=== PATIENT | male | born 1985 | race Caucasian/White ===

== ENCOUNTER 2018-05-03 19:48 | Emergency (ER) | payer BC ==
--- NOTE | 2018-05-03 20:00 | ER Report ---
History and Physical Time Seen By MD: 20:00 Hx. of Stated Complaint: ABD PAIN STARTED YESTERDAY, NAUSEA, DENIES V/D AND FEVERS (TERRI LONGORIAP-) Time Seen By MD: 20:08 (CHARLETTE LOYA DO) HPI/ROS CHIEF COMPLAINT: Diffuse abdominal pain, nausea HISTORY OF PRESENT ILLNESS: Patient is a 32-year-old male here with complaints of diffuse abdominal pain worse in the mid epigastric and periumbilical region which is aching in nature approximately 7 out of 10 at time of evaluation associated with nausea. Patient denies vomiting, fevers or chills, chest pain or shortness breath, headache or blurred vision, dysuria or hematuria. Patient is passing bowel movements without issue. Denies prior abdominal surgeries. Patient is otherwise healthy and takes no medications at baseline however he did take Her Profen shortly prior to arrival. Patient denies similar pains in the past. Pain started approximately midday yesterday and worsened overnight. REVIEW OF SYSTEMS: Constitutional: No fever, no chills. Eyes: No discharge. ENT: No sore throat. Cardiovascular: No chest pain, no palpitations. Respiratory: No cough, no shortness of breath. Gastrointestinal: + Diffuse abdominal pain, no vomiting, + nausea Genitourinary: No hematuria. Musculoskeletal: No back pain. Skin: No rashes. Neurological: No headache. (CHARLETTE LOYA DO) Allergies: Coded Allergies: No Known Drug Allergies (Unverified , 05/03/18) Home Meds No Active Prescriptions or Reported Meds Constitutional Vital Sign - Last 24 Hours 05/03/18 19:53 Temp 98.2 Pulse 67 Resp 16 B/P (MAP) 152/104 Pulse Ox 95 O2 Delivery Room Air (CHARLETTE LOYA ) Physical Exam General Appearance: The patient is alert, has no immediate need for airway p rotection and no signs of toxicity. Moderate distress secondary to pain Eyes: Pupils equal and round no pallor or injection. ENT, Mouth: Mucous membranes are moist. Respiratory: There are no retractions, lungs are clear to auscultation. Cardiovascular: Regular rate and rhythm. Gastrointestinal: Abdomen is soft and diffusely tender, no masses, bowel sounds normal. Neurological: No focal neurological deficits Skin: Warm and dry, no rashes. Musculoskeletal: Neck is supple non tender. Extremities are nontender, nonswollen and have full range of motion. DIFFERENTIAL DIAGNOSIS: After history and physical exam differential diagnosis was considered for abdominal pain including but not limited to appendicitis, cholecystitis, gastritis and urinary tract infection. Diverticulitis (CHARLETTE LOYA S DO) Medical Decision Making Data Points Result Diagram: 05/03/18200005/03/182000 Laboratory Hematology Test 05/03/18 19:52 05/03/18 20:01 Urine Color Straw Urine Clarity Clear Urine pH 7.0 pH (4.8-9.5) Urine Specific [place] 1.010 Urine Protein Negative mg/dL (NEGATIVE) Urine Glucose (UA) Negative mg/dL (NEGATIVE) Urine Ketones Negative mg/dL (NEGATIVE) Urine Blood Negative (NEGATIVE) Urine Nitrite Negative (NEGATIVE) Urine Bilirubin Negative (NEGATIVE) Urine Urobilinogen Negative mg/dL (0.2-1.9) Urine Leukocyte Esterase Negative (NEGATIVE) Urine RBC <1 /HPF (0-2/HPF) Urine WBC <1 /HPF (0-5/HPF) Urine Squamous Epithelial Cells None /LPF (</=FEW) Urine Bacteria Negative /HPF (NONE-FEW) Urine Mucus None /HPF (NONE-FEW) Red Blood Count 5.25 M/uL (4.00-5.60) Mean Corpuscular Volume 91.0 fL (80.0-96.0) Mean Corpuscular Hemoglobin 31.8 pg (26.0-33.0) Mean Corpuscular Hemoglobin Concent 35.0 g/dL (32.0-36.0) Red Cell Distribution Width 12.7 % (11.5-14.5) Mean Platelet Volume 7.5 fL (7.2-11.1) Neutrophils (%) (Auto) 62.6 % (39.4-72.5) Lymphocytes (%) (Auto) 25.3 % (17.6-49.6) Monocytes (%) (Auto) 10.9 % (4.1-12.4) Eosinophils (%) (Auto) 0.8 % (0.4-6.7) Basophils (%) (Auto) 0.4 % (0.3-1.4) Nucleated RBC Relative Count (auto) 0.0 /100WBC Neutrophils # (Auto) 5.6 K/uL (2.0-7.4) Lymphocytes # (Auto) 2.3 K/uL (1.3-3.6) Monocytes # (Auto) 1.0 K/uL (0.3-1.0) Eosinophils # (Auto) 0.1 K/uL (0.0-0.5) Basophils # (Auto) 0.0 K/uL (0.0-0.1) Nucleated RBC Absolute Count (auto) 0.00 K/uL Sodium Level 139 mmol/L (137-145) Potassium Level 3.9 mmol/L (3.5-5.0) Chloride Level 99 mmol/L (98-107) Carbon Dioxide Level 29 mmol/L (22-30) Blood Urea Nitrogen 16 mg/dl (9-21) Creatinine 0.90 mg/dl (0.66-1.25) Glomerular Filtration Rate Calc > 60.0 Random Glucose 107 mg/dl (75-110) Calcium Level 9.3 mg/dl (8.4-10.2) Total Bilirubin 0.7 mg/dl (0.2-1.3) Aspartate Amino Transf (AST/SGOT) 26 U/L (0-35) Alanine Aminotransferase (ALT/SGPT) 38 U/L (0-56) Alkaline Phosphatase 57 U/L (0-126) C-Reactive Protein < 0.5 mg/dl (<1.0) Total Protein 8.0 g/dl (6.3-8.2) Albumin 4.4 g/dl (3.5-5.0) Lipase 107 U/L (23-300) Chemistry Test 05/03/18 19:52 05/03/18 20:01 Urine Color Straw Urine Clarity Clear Urine pH 7.0 pH (4.8-9.5) Urine Specific [place] 1.010 Urine Protein Negative mg/dL (NEGATIVE) Urine Glucose (UA) Negative mg/dL (NEGATIVE) Urine Ketones Negative mg/dL (NEGATIVE) Urine Blood Negative (NEGATIVE) Urine Nitrite Negative (NEGATIVE) Urine Bilirubin Negative (NEGATIVE) Urine Urobilinogen Negative mg/dL (0.2-1.9) Urine Leukocyte Esterase Negative (NEGATIVE) Urine RBC <1 /HPF (0-2/HPF) Urine WBC <1 /HPF (0-5/HPF) Urine Squamous Epithelial Cells None /LPF (</=FEW) Urine Bacteria Negative /HPF (NONE-FEW) Urine Mucus None /HPF (NONE-FEW) White Blood Count 9.0 k/uL (4.5-11.0) Red Blood Count 5.25 M/uL (4.00-5.60) Hemoglobin 16.7 g/dL (14.0-18.0) Hematocrit 47.8 % (42.0-52.0) Mean Corpuscular Volume 91.0 fL (80.0-96.0) Mean Corpuscular Hemoglobin 31.8 pg (26.0-33.0) Mean Corpuscular Hemoglobin Concent 35.0 g/dL (32.0-36.0) Red Cell Distribution Width 12.7 % (11.5-14.5) Platelet Count 232 K/uL (150-450) Mean Platelet Volume 7.5 fL (7.2-11.1) Neutrophils (%) (Auto) 62.6 % (39.4-72.5) Lymphocytes (%) (Auto) 25.3 % (17.6-49.6) Monocytes (%) (Auto) 10.9 % (4.1-12.4) Eosinophils (%) (Auto) 0.8 % (0.4-6.7) Basophils (%) (Auto) 0.4 % (0.3-1.4) Nucleated RBC Relative Count (auto) 0.0 /100WBC Neutrophils # (Auto) 5.6 K/uL (2.0-7.4) Lymphocytes # (Auto) 2.3 K/uL (1.3-3.6) Monocytes # (Auto) 1.0 K/uL (0.3-1.0) Eosinophils # (Auto) 0.1 K/uL (0.0-0.5) Basophils # (Auto) 0.0 K/uL (0.0-0.1) Nucleated RBC Absolute Count (auto) 0.00 K/uL Glomerular Filtration Rate Calc > 60.0 Calcium Level 9.3 mg/dl (8.4-10.2) Total Bilirubin 0.7 mg/dl (0.2-1.3) Aspartate Amino Transf (AST/SGOT) 26 U/L (0-35) Alanine Aminotransferase (ALT/SGPT) 38 U/L (0-56) Alkaline Phosphatase 57 U/L (0-126) C-Reactive Protein < 0.5 mg/dl (<1.0) Total Protein 8.0 g/dl (6.3-8.2) Albumin 4.4 g/dl (3.5-5.0) Lipase 107 U/L (23-300) Urinalysis Test 05/03/18 19:52 Urine Color Straw Urine Clarity Clear Urine pH 7.0 pH (4.8-9.5) Urine Specific [place] 1.010 Urine Protein Negative mg/dL (NEGATIVE) Urine Glucose (UA) Negative mg/dL (NEGATIVE) Urine Ketones Negative mg/dL (NEGATIVE) Urine Blood Negative (NEGATIVE) Urine Nitrite Negative (NEGATIVE) Urine Bilirubin Negative (NEGATIVE) Urine Urobilinogen Negative mg/dL (0.2-1.9) Urine Leukocyte Esterase Negative (NEGATIVE) Urine RBC <1 /HPF (0-2/HPF) Urine WBC <1 /HPF (0-5/HPF) Urine Squamous Epithelial Cells None /LPF (</=FEW) Urine Bacteria Negative /HPF (NONE-FEW) Urine Mucus None /HPF (NONE-FEW) (CHARLETTE LOYA DO) Depart Departure Latest Vital Signs Vital Signs Date Time Temp Pulse Resp B/P (MAP) Pulse Ox O2 Delivery O2 Flow Rate FiO2 05/03/18 19:53 98.2 67 16 152/104 95 Room Air (CHARLETTE LOYA DO) Condition: Stable Disposition: HOME OR SELF-CARE New Scripts No Active Prescriptions or Reported Meds TERRI LONGORIA DOCUMENTATION CLERK-BC May 03, 2018 20:00 CHARLETTE LOYA DO May 03, 2018 20:11
[2018-05-03] MEDS ORDERED: NS(*) 0.9% 1000 ML BAG 1,000 ML IV ONE (20:06)
[2018-05-03] MEDS ORDERED: fentaNYL CITR 100 MCG/2 ML AMP IVP ONE (20:10)
[2018-05-03] MEDS ORDERED: ONDANSETRON 4 MG/2 ML VIAL IVP ONE (20:10)
[2018-05-03 20:15] LABS: PLATELET COUNT, AUTOMATED 232 K/uL (150-450)
[2018-05-03] MEDS ORDERED: IOPAMIDOL 76% 75 ML INFUS BTL 75 ML ONE (20:18)
[2018-05-03] MEDS ORDERED: PROMETHAZINE 25 MG/ML 1 ML AMP IVP ONE (21:05)
[2018-05-03 21:30] VITALS: BP 147/100
--- NOTE | 2018-05-03 21:30 | RADIOLOGY IMAGING REPORT ---
FACILITY: [facility] - [place] PATIENT NAME: Johnnie Young : 1985 MR: [id number] V: [id number] EXAM DATE: [id number] ORDERING PHYSICIAN: CHARLETTE LOYA TECHNOLOGIST: Location: [facility] - [place] Patient: Johnnie Young : 1985 Visit/Account:[id number] Date of Sevice: 05/03/2018 COMPUTED TOMOGRAPHY ABDOMEN AND PELVIS WITH INTRAVENOUS CONTRAST DATE OF EXAM: 05/03/2018 8:06 PM INDICATION: Diffuse abdominal pain, nausea. COMPARISON: None. TECHNIQUE: Contrast enhanced abdomen and pelvis CT performed during the injection of 75 ml of Isovue 370. Sagittal and coronal reconstructions were performed. One of the following dose optimization te chniques was utilized in the performance of this exam: Automated exposure control; adjustment of the mA and/or kV according to the patient's size; or use of an iterative reconstruction technique. Spec [facility] details can be referenced in the facility's radiology CT exam operational policy. FINDINGS: Lung bases: Clear. Liver and hepatic vasculature: Normal. Gallbladder and bile ducts: Normal. Spleen: Normal. Pancreas: Normal. Adrenals: Normal. Kidneys, ureters and bladder: Normal. Retroperitoneum and aorta: Normal aorta. Retroaortic left renal vein. No adenopathy. GI tract, mesentery and peritoneum: No evidence of obstruction. No pneumatosis, pneumoperitoneum or significant free fluid. The appendix is normal. There is feculent material in the distal small bow el. Prostate and seminal vesicles: Normal. Bones and soft tissues: No acute abnormality or suspicious lesion. Tiny fat-containing right inguin al hernia. IMPRESSION: Feculent material in the distal small bowel could indicate dysmotility. Otherwise nonacu te examination. Report Dictated By: Ozzie Sheikh MD at 05/03/2018 9:16 PM Report E-Signed By: Ozzie Sheikh MD at 05/03/2018 9:26 PM WSN:[id number]
--- NOTE | 2018-05-03 21:43 | ER Report ---
History and Physical Time Seen By MD: 20:15 Hx. of Stated Complaint: ABD PAIN STARTED YESTERDAY, NAUSEA, DENIES V/D AND FEVERS HPI/ROS CHIEF COMPLAINT: Diffuse abd pain, nausea HISTORY OF PRESENT ILLNESS: HISTORY OF PRESENT ILLNESS: Patient is a 32-year-old male here with complaints of diffuse abdominal pain worse in the mid epigastric and periumbilical region which is aching in nature approximately 7 out of 10 at time of evaluation associated with nausea. Patient denies vomiting, fevers or chills, chest pain or shortness breath, headache or blurred vision, dysuria or hematuria. Patient is passing bowel movements without issue. Denies prior abdominal surgeries. Patient is otherwise healthy and takes no medications at baseline however he did take Her Profen shortly prior to arrival. Patient denies similar pains in the past. Pain started approximately midday yesterday and worsened overnight. REVIEW OF SYSTEMS: Constitutional: No fever, no chills. Eyes: No discharge. ENT: No sore throat. Cardiovascular: No chest pain, no palpitations. Respiratory: No cough, no shortness of breath. Gastrointestinal: + diffuse abdominal pain, + nausea without vomiting. Genitourinary: No hematuria. Musculoskeletal: No back pain. Skin: No rashes. Neurological: No headache. Allergies: Coded Allergies: No Known Drug Allergies (Unverified , 05/03/18) Home Meds Active Scripts Ondansetron (ZOFRAN ODT) 4 Mg Tab.rapdis, 4 MG PO Q6H PRN for NAUSEA/VOMITING, #20 TAB.ANABEL 0 Refills Prov:CHARLETTE LOYA DO 05/03/18 Constitutional Vital Sign - Last 24 Hours 05/03/18 05/03/18 05/03/18 05/03/18 19:53 19:53 20:00 20:03 Temp 98.2 Pulse 67 72 Resp 16 B/P (MAP) 152/104 152/104 (120) 135/108 (117) Pulse Ox 95 95 O2 Delivery Room Air 05/03/18 05/03/18 05/03/18 05/03/18 20:18 20:30 20:33 20:48 Pulse 76 ??? 62 B/P (MAP) ???/??? (9485) Pulse Ox 93 91 05/03/18 05/03/18 05/03/1805/03/18 21:00 21:03 21:18 21:30 Pulse 65 78 B/P (MAP) 131/87 (102) 147/100 (116) Pulse Ox 93 94 05/03/18 21:33 Pulse 75 Pulse Ox 93 Intake and Output 05/03/18 05/03/18 05/04/18 15:00 23:00 07:00 Intake Total 1000 ml Balance 1000 ml Physical Exam General Appearance: The patient is alert, has no immediate need for airway protection and no signs of toxicity. Moderate distress secondary to pain Eyes: Pupils equal and round no pallor or injection. ENT, Mouth: Mucous membranes are moist. Respiratory: There are no retractions, lungs are clear to auscultation. Cardiovascular: Regular rate and rhythm. Gastrointestinal: Abdomen is soft and + diffusely tender, no masses, bowel sounds normal. Neurological: No focal deficits Skin: Warm and dry, no rashes. Musculoskeletal: Neck is supple non tender. Extremities are nontender, nonswollen and have full range of motion. DIFFERENTIAL DIAGNOSIS: After history and physical exam differential diagnosis was considered for abdominal pain including but not limited to appendicitis, cholecystitis, gastritis and urinary tract infection. Medical Decision Making Data Points Result Diagram: 05/03/18200005/03/182000 Laboratory Hematology Test 05/03/18 19:52 05/03/18 20:01 Urine Color Straw Urine Clarity Clear Urine pH 7.0 pH (4.8-9.5) Urine Specific [place] 1.010 Urine Protein Negative mg/dL (NEGATIVE) Urine Glucose (UA) Negative mg/dL (NEGATIVE) Urine Ketones Negative mg/dL (NEGATIVE) Urine Blood Negative (NEGATIVE) Urine Nitrite Negative (NEGATIVE) Urine Bilirubin Negative (NEGATIVE) Urine Urobilinogen Negative mg/dL (0.2-1.9) Urine Leukocyte Esterase Negative (NEGATIVE) Urine RBC <1 /HPF (0-2/HPF) Urine WBC <1 /HPF (0-5/HPF) Urine Squamous Epithelial Cells None /LPF (</=FEW) Urine Bacteria Negative /HPF (NONE-FEW) Urine Mucus None /HPF (NONE-FEW) Red Blood Count 5.25 M/uL (4.00-5.60) Mean Corpuscular Volume 91.0 fL (80.0-96.0) Mean Corpuscular Hemoglobin 31.8 pg (26.0-33.0) Mean Corpuscular Hemoglobin Concent 35.0 g/dL (32.0-36.0) Red Cell Distribution Width 12.7 % (11.5-14.5) Mean Platelet Volume 7.5 fL (7.2-11.1) Neutrophils (%) (Auto) 62.6 % (39.4-72.5) Lymphocytes (%) (Auto) 25.3 % (17.6-49.6) Monocytes (%) (Auto) 10.9 % (4.1-12.4) Eosinophils (%) (Auto) 0.8 % (0.4-6.7) Basophils (%) (Auto) 0.4 % (0.3-1.4) Nucleated RBC Relative Count (auto) 0.0 /100WBC Neutrophils # (Auto) 5.6 K/uL (2.0-7.4) Lymphocytes # (Auto) 2.3 K/uL (1.3-3.6) Monocytes # (Auto) 1.0 K/uL (0.3-1.0) Eosinophils # (Auto) 0.1 K/uL (0.0-0.5) Basophils # (Auto) 0.0 K/uL (0.0-0.1) Nucleated RBC Absolute Count (auto) 0.00 K/uL Sodium Level 139 mmol/L (137-145) Potassium Level 3.9 mmol/L (3.5-5.0) Chloride Level 99 mmol/L (98-107) Carbon Dioxide Level 29 mmol/L (22-30) Blood Urea Nitrogen 16 mg/dl (9-21) Creatinine 0.90 mg/dl (0.66-1.25) Glomerular Filtration Rate Calc > 60.0 Random Glucose 107 mg/dl (75-110) Calcium Level 9.3 mg/dl (8.4-10.2) Total Bilirubin 0.7 mg/dl (0.2-1.3) Aspartate Amino Transf (AST/SGOT) 26 U/L (0-35) Alanine Aminotransferase (ALT/SGPT) 38 U/L (0-56) Alkaline Phosphatase 57 U/L (0-126) C-Reactive Protein < 0.5 mg/dl (<1.0) Total Protein 8.0 g/dl (6.3-8.2) Albumin 4.4 g/dl (3.5-5.0) Lipase 107 U/L (23-300) Chemistry Test 05/03/18 19:52 05/03/18 20:01 Urine Color Straw Urine Clarity Clear Urine pH 7.0 pH (4.8-9.5) Urine Specific [place] 1.010 Urine Protein Negative mg/dL (NEGATIVE) Urine Glucose (UA) Negative mg/dL (NEGATIVE) Urine Ketones Negative mg/dL (NEGATIVE) Urine Blood Negative (NEGATIVE) Urine Nitrite Negative (NEGATIVE) Urine Bilirubin Negative (NEGATIVE) Urine Urobilinogen Negative mg/dL (0.2-1.9) Urine Leukocyte Esterase Negative (NEGATIVE) Urine RBC <1 /HPF (0-2/HPF) Urine WBC <1 /HPF (0-5/HPF) Urine Squamous Epithelial Cells None /LPF (</=FEW) Urine Bacteria Negative /HPF (NONE-FEW) Urine Mucus None /HPF (NONE-FEW) White Blood Count 9.0 k/uL (4.5-11.0) Red Blood Count 5.25 M/uL (4.00-5.60) Hemoglobin 16.7 g/dL (14.0-18.0) Hematocrit 47.8 % (42.0-52.0) Mean Corpuscular Volume 91.0 fL (80.0-96.0) Mean Corpuscular Hemoglobin 31.8 pg (26.0-33.0) Mean Corpuscular Hemoglobin Concent 35.0 g/dL (32.0-36.0) Red Cell Distribution Width 12.7 % (11.5-14.5) Platelet Count 232 K/uL (150-450) Mean Platelet Volume 7.5 fL (7.2-11.1) Neutrophils (%) (Auto) 62.6 % (39.4-72.5) Lymphocytes (%) (Auto) 25.3 % (17.6-49.6) Monocytes (%) (Auto) 10.9 % (4.1-12.4) Eosinophils (%) (Auto) 0.8 % (0.4-6.7) Basophils (%) (Auto) 0.4 % (0.3-1.4) Nucleated RBC Relative Count (auto) 0.0 /100WBC Neutrophils # (Auto) 5.6 K/uL (2.0-7.4) Lymphocytes # (Auto) 2.3 K/uL (1.3-3.6) Monocytes # (Auto) 1.0 K/uL (0.3-1.0) Eosinophils # (Auto) 0.1 K/uL (0.0-0.5) Basophils # (Auto) 0.0 K/uL (0.0-0.1) Nucleated RBC Absolute Count (auto) 0.00 K/uL Glomerular Filtration Rate Calc > 60.0 Calcium Level 9.3 mg/dl (8.4-10.2) Total Bilirubin 0.7 mg/dl (0.2-1.3) Aspartate Amino Transf (AST/SGOT) 26 U/L (0-35) Alanine Aminotransferase (ALT/SGPT) 38 U/L (0-56) Alkaline Phosphatase 57 U/L (0-126) C-Reactive Protein < 0.5 mg/dl (<1.0) Total Protein 8.0 g/dl (6.3-8.2) Albumin 4.4 g/dl (3.5-5.0) Lipase 107 U/L (23-300) Urinalysis Test 05/03/18 19:52 Urine Color Straw Urine Clarity Clear Urine pH 7.0 pH (4.8-9.5) Urine Specific [place] 1.010 Urine Protein Negative mg/dL (NEGATIVE) Urine Glucose (UA) Negative mg/dL (NEGATIVE) Urine Ketones Negative mg/dL (NEGATIVE) Urine Blood Negative (NEGATIVE) Urine Nitrite Negative (NEGATIVE) Urine Bilirubin Negative (NEGATIVE) Urine Urobilinogen Negative mg/dL (0.2-1.9) Urine Leukocyte Esterase Negative (NEGATIVE) Urine RBC <1 /HPF (0-2/HPF) Urine WBC <1 /HPF (0-5/HPF) Urine Squamous Epithelial Cells None /LPF (</=FEW) Urine Bacteria Negative /HPF (NONE-FEW) Urine Mucus None /HPF (NONE-FEW) EKG/Imaging Imaging COMPUTED TOMOGRAPHY ABDOMEN AND PELVIS WITH INTRAVENOUS CONTRAST DATE OF EXAM: 05/03/2018 8:06 PM INDICATION: Diffuse abdominal pain, nausea. COMPARISON: None. TECHNIQUE: Contrast enhanced abdomen and pelvis CT performed during the injection of 75 ml of Isovue 370. Sagittal and coronal reconstructions were performed. One of the following dose optimization techniques was utilized in the performance of this exam: Automated exposure control; adjustment of the mA and/or kV according to the patient's size; or use of an iterative reconstruction technique. Specific details can be referenced in the facility's radiology CT exam operational policy. FINDINGS: Lung bases: Clear. Liver and hepatic vasculature: Normal. Gallbladder and bile ducts: Normal. Spleen: Normal. Pancreas: Normal. Adrenals: Normal. Kidneys, ureters and bladder: Normal. Retroperitoneum and aorta: Normal aorta. Retroaortic left renal vein. No adenopathy. GI tract, mesentery and peritoneum: No evidence of obstruction. No pneumatosis, pneumoperitoneum or significant free fluid. The appendix is normal. There is feculent material in the distal small bowel. Prostate and seminal vesicles: Normal. Bones and soft tissues: No acute abnormality or suspicious lesion. Tiny fat- containing right inguinal hernia. IMPRESSION: Feculent material in the distal small bowel could indicate dysmotility. Otherwise nonacute examination. ED Course/Re-evaluation ED Course Patient is a 32-year-old male here with complaints of diffuse abdominal pain for the past day. Patient was given Zofran, Phenergan, fentanyl for symptom managem ent. CBC, CMP, urinalysis were unremarkable. The leukocytosis was identified, urinalysis was noninfectious. CT imaging of the abdomen and pelvis showed no acute findings or intra-abdominal pathology. Patient was updated regarding the findings and was discharged on Zofran. Patient was stable throughout course in the emergency department Decision to Disposition Date: May 03, 2018 Decision to Disposition Time: 21:48 Depart Departure Latest Vital Signs Vital Signs Date Time Temp Pulse Resp B/P (MAP) Pulse Ox O2 Delivery O2 Flow Rate FiO2 05/03/18 21:33 75 93 05/03/18 21:30 147/100 (116) 05/03/18 19:53 98.2 16 Room Air Impression: Primary Impression: Abdominal pain Condition: Improved Disposition: HOME OR SELF-CARE Referrals: ALEXUS SHELLEY DO (PCP) New Scripts Ondansetron (ZOFRAN ODT) 4 Mg Tab.rapdis 4 MG PO Q6H PRN for NAUSEA/VOMITING, #20 TAB.ANABEL 0 Refills Prov: CHARLETTE LOYA DO 05/03/18 Patient Instructions: Abdominal Pain (ED), Ondansetron (By mouth, Into the mouth) Additional Instructions: You may take Zofran 1 tablet every 6-8 hours as needed for nausea and vomiting. Please drink plenty of water. You may consider taking MiraLAX as needed for constipation. Please follow-up with her family doctor in the next week for follow-up care. Please return if you develop fevers, chills, worsening abdominal pain, inability to hold down fluid or food. CHARLETTE LOYA DO May 03, 2018 21:42
[2018-05-03] MEDS ORDERED: ONDA4TAB PO (21:47)
== END 2018-05-03 21:55 | disposition home or self-care (01) ==
LOC: ER 20:46
DX: R10.13 Epigastric pain (principal); R10.33 Periumbilical pain
CPT/HCPCS: 74177; 81001; 83690; 85025; 86140; 96361; 96374; 96375; 99284; J2405; J2550; J3010; J7030; Q9967; 82040; 82247; 82310; 82374; 82435; 82565; 82947; 84075; 84132; 84155; 84295; 84450; 84460; 84520